=== PATIENT | female | born 1945 | race Caucasian/White ===

== ENCOUNTER 2018-05-04 10:29 | Outpatient (CLI) | payer MEDICARE, BC ==
--- NOTE | 2018-05-04 13:13 | ULT ---
THYROID ULTRASOUND: History: Nodules within the thyroid seen on outside ultrasound. Technique: Multiplanar grayscale and color doppler images were obtained in a thyroid ultrasound. FINDINGS: There are multiple cysts scattered throughout the thyroid. There are areas of nodularity measuring up to 9 mm in size in the left lobe. There is a predominately cystic lesion involving the right lobe me asuring 1.6 cm in greatest dimension. These lesions are all wider than tall and well circumscribed wi thout specific calcifications. Thyroid lobes each measure 5.4 cm in length. IMPRESSION: Multinodular, multicystic thyroid. The thyroid nodules are all TIRADS category II lesions and further follow up is not necessary per recent recommendations. POS: SIENNA
== END 2018-05-04 10:30 | disposition home or self-care (01) ==
LOC: BICULT 10:29
PROVIDERS: ATTEND Otolaryngology Plastic Surgery within the Head & Neck
DX: E04.2 Nontoxic multinodular goiter (principal)
CPT/HCPCS: 76536

== ENCOUNTER 2019-01-21 11:52 | Outpatient (CLI) | payer MEDICARE, BC ==
--- NOTE | 2019-01-21 12:11 | RAD ---
XR Knee Lt 4 View STANDARD HISTORY: Fall, posterior left knee pain FINDINGS: No fracture or dislocation is identified. Patellar osteophytes are present.
== END 2019-01-21 11:53 | disposition home or self-care (01) ==
LOC: SCSRAD 11:52
PROVIDERS: ATTEND Nurse Practitioner Family
DX: M25.562 Pain in left knee (principal); M25.762 Osteophyte, left knee

== ENCOUNTER 2019-08-21 09:13 | Emergency (ER) | payer MEDICARE, BC ==
--- NOTE | 2019-08-21 10:13 | CT ---
Head CT without contrast 08/21/2019: COMPARISON: None HISTORY: Intermittent tingling with left-sided headache TECHNIQUE: Axial CT imaging at 5 mm intervals from vertex through skull base without contrast FINDINGS: Mild mucosal thickening of right sphenoid sinus. Imaged paranasal sinuses and mastoid air c ells well-aerated otherwise. No acute osseous abnormality. No intracranial hemorrhage, midline shift, or mass effect. IMPRESSION: No intracranial hemorrhage.
[2019-08-21 10:25] LABS: #Lymphocytes 0.5 thou/uL (1.20-3.40); #Monocytes 0.5 thou/uL (0.11-0.59); #Neutrophils 4.8 thou/uL (1.40-6.50); %Basophils 0.7 % (0.0-1.0); %Eosinophils 0.6 % (0.0-10.0); %Lymphocytes 9.1 % (21.0-51.0); %Monocytes 7.8 % (0.0-10.0); %Neutrophils 81.8 % (42.0-75.0); Hemoglobin 12.9 g/dL (12.0-16.0); Mean Corpuscular HGB CONC 34.5 g/dL (32.0-36.0); Mean Corpuscular Hemoglobin 31.4 pg (27.0-31.0); Mean Platelet Volume 5.8 fL (7.4-10.4); Platelet Count 217 thou/uL (130-400); RBC Distribution Width 11.5 % (11.5-14.5); White Blood Cell (WBC) Count 5.9 thou/uL (4.8-10.8)
[2019-08-21 10:32] LABS: PTT 34.8 SEC (22.9-36.1); Prothrombin Time 12.7 SEC (12.0-14.7)
[2019-08-21 10:49] LABS: ALT (SGPT) 16 U/L (8-55); AST (SGOT) 20 U/L (5-34); Albumin 3.7 g/dL (3.4-4.8); Alkaline Phosphatase 74 U/L (40-110); Anion Gap 13 mmol/L (10-20); BUN (Urea Nitrogen) 29 mg/dL (9.8-20.1); Bilirubin, Total 1.1 mg/dL (0.2-1.2); Calc. Creatinine Clearance 0 mL/min (70-130); Calcium 9.5 mg/dL (7.8-10.44); Carbon Dioxide 28 mmol/L (23-31); Chloride 97 mmol/L (98-107); Estimated GFR-MDRD 42; Globulin 2.8 g/dL (2.4-3.5); Glucose 232 mg/dL (83-110); Potassium 4.2 mmol/L (3.5-5.1); Protein, Total 6.5 g/dL (6.0-8.3); Sodium 134 mmol/L (136-145)
== END 2019-08-21 13:02 | disposition home or self-care (01) ==
LOC: ERS 09:13
DX: E11.42 Type 2 diabetes mellitus with diabetic polyneuropathy (principal); E78.00 Pure hypercholesterolemia, unspecified; I10 Essential (primary) hypertension; E78.5 Hyperlipidemia, unspecified; Z79.82 Long term (current) use of aspirin; Z79.899 Other long term (current) drug therapy; Z79.84 Long term (current) use of oral hypoglycemic drugs
CPT/HCPCS: 36415; 70450; 80053; 85025; 85610; 85730; 93005

== ENCOUNTER 2019-09-01 06:59 | Outpatient (CLI) | payer MEDICARE, BC ==
--- NOTE | 2019-09-01 10:15 | ULT ---
Exam: THYROID ULTRASOUND: HISTORY: Thyroid nodules. COMPARISON: 05/04/2018. FINDINGS: Thyroid isthmus measures 0.19 cm. Right thyroid lobe measures 5.4 x 2.3 x 1.9 cm. Left thyroid lobe measures 5.2 x 1.9 x 2.1 cm. Thyroid nodules: Right thyroid lobe: There are multiple mixed solid and cystic nodules throughout the right thyroid lo be. Largest nodule measures 1.8 x 1.0 x 1.0 cm and is located in the mid to upper pole. Left thyroid lobe: Multiple solid as well as mixed solid and cystic nodules in the left thyroid lobe. Largest nodule in the left thyroid lobe has ill-defined borders and appears to be mixed solid and cystic. Nodule measures 1.3 x 0.7 x 0.8 cm. When compared to the previous examination, the overall degree of nodularity has not changed. IMPRESSION: Multiple nodules throughout the left and right thyroid lobe, essentially unchanged. TI-RADS level TR4, moderately suspicious. Follow-up imaging in one year is recommended. Transcribed Date/Time: 09/01/2019 10:28 AM
== END 2019-09-01 07:00 | disposition home or self-care (01) ==
LOC: BICULT 06:59
PROVIDERS: ATTEND Otolaryngology Plastic Surgery within the Head & Neck
DX: E04.2 Nontoxic multinodular goiter (principal)
CPT/HCPCS: 76536

== ENCOUNTER 2020-04-07 19:55 | Emergency (ER) | payer MEDICARE, BC, OTHER ==
[2020-04-07 20:34] LABS: #Lymphocytes 0.7 thou/uL (1.20-3.40); #Monocytes 0.2 thou/uL (0.11-0.59); #Neutrophils 4.8 thou/uL (1.40-6.50); %Basophils 0.8 % (0.0-1.0); %Eosinophils 0.8 % (0.0-10.0); %Lymphocytes 12.1 % (21.0-51.0); %Monocytes 3.9 % (0.0-10.0); %Neutrophils 82.4 % (42.0-75.0); Hemoglobin 13.3 g/dL (12.0-16.0); Mean Corpuscular Volume 91.2 fL (78.0-98.0); Mean Platelet Volume 5.8 fL (7.4-10.4); Platelet Count 246 thou/uL (130-400); RBC Distribution Width 11.9 % (11.5-14.5); Red Blood Cell (RBC) Count 4.27 mill/uL (4.20-5.40); White Blood Cell (WBC) Count 5.8 thou/uL (4.8-10.8)
--- NOTE | 2020-04-07 20:47 | RAD ---
PORTABLE CHEST: 04/07/20 HISTORY: Malaise. Chills and fever. FINDINGS: The lung parker are clear. No infiltrate identified. Heart and mediastinum appear normal. Postop ster notomy changes are noted. The vascular markings are normal. Mild stranding in the peripheral left esequiel g appears chronic. IMPRESSION: No evidence of infiltrate. POS: AGW
[2020-04-07 21:01] LABS: ALT (SGPT) 28 U/L (8-55); AST (SGOT) 34 U/L (5-34); Albumin 4.1 g/dL (3.4-4.8); Alkaline Phosphatase 83 U/L (40-110); Anion Gap 17 mmol/L (10-20); BUN (Urea Nitrogen) 36 mg/dL (9.8-20.1); Bilirubin, Total 0.8 mg/dL (0.2-1.2); Calc. Creatinine Clearance 0 mL/min (70-130); Calcium 10.1 mg/dL (7.8-10.44); Carbon Dioxide 22 mmol/L (23-31); Chloride 95 mmol/L (98-107); Estimated GFR-MDRD 46; Globulin 3.2 g/dL (2.4-3.5); Glucose 109 mg/dL (83-110); Lipase 34 U/L (8-78); Potassium 3.7 mmol/L (3.5-5.1); Protein, Total 7.3 g/dL (6.0-8.3); Sodium 130 mmol/L (136-145)
[2020-04-08 12:10] LABS: SARS-CoV-2 MS2 Positive; SARS-CoV-2 N Gene Negative; SARS-CoV-2 S Gene Negative; SARS-CoV-2 by NAA Not Detected (NotDetected); SARS-CoV-2 orf1ab Negative
== END 2020-04-07 22:34 | disposition home or self-care (01) ==
LOC: ERS 19:55
DX: R68.83 Chills (without fever) (principal); R11.2 Nausea with vomiting, unspecified; Z20.828 Contact with and (suspected) exposure to other viral communicable diseases; E11.9 Type 2 diabetes mellitus without complications; E78.5 Hyperlipidemia, unspecified; E78.00 Pure hypercholesterolemia, unspecified; I10 Essential (primary) hypertension; Z79.84 Long term (current) use of oral hypoglycemic drugs; Z79.899 Other long term (current) drug therapy
CPT/HCPCS: 71045; 80053; 83605; 83690; 84484; 85025; 87040; 93005; U0003; 36415; 87635

== ENCOUNTER 2020-09-05 06:57 | Outpatient (CLI) | payer MEDICARE, BC ==
--- NOTE | 2020-09-05 08:19 | ULT ---
Ultrasound of thethyroid: 09/05/2020 COMPARISON:09/01/2019 and 05/04/2018 HISTORY:Evaluate thyroid nodules TECHNIQUE: Multiplanar grayscale sonographic imaging of thethyroid gland provided FINDINGS:The thyroid isthmus measures 2 mm in AP dimension. The right lobe measures 2.3 x 2.0 x 5.7 cm. The left lobe measures 1.8 x 2.2 x 5.3 cm. Multiple thyroid nodules are noted within the right and left lobe of the thyroid gland. There is a so lid and cystic hypoechoic nodule within the mid portion of the right lobe measuring approximately 1.1 x 1.0 x 1.7 cm, not significantly changed when compared to the prior examination at which time it measured 1.8 x 1.1 x 1.3 cm. Additional tiny hypoechoic nodules are noted within the right lobe measuring up to 4 mm. Within the midpole of the left lobe there is a heterogeneously hypoechoic nodul e measuring up to approximately 1.1 cm, not significantly changed. Numerous additional nodules are noted within the left lobe, all of which are mildly heterogeneous and hypoechoic measuring up to 1 cm in the upper pole region and 1.1 cm in the lower pole region. No significant interval change is appreciated when compared to the 2001 exam. In addition, there has been no significant interval change when compared to the 05/04/2018 exam. IMPRESSION: Multiple stable thyroid nodules, unchanged since 2018.
== END 2020-09-05 06:58 | disposition home or self-care (01) ==
LOC: BICULT 06:57
PROVIDERS: ATTEND Otolaryngology Plastic Surgery within the Head & Neck
DX: E04.2 Nontoxic multinodular goiter (principal)
CPT/HCPCS: 76536

== ENCOUNTER 2021-05-08 10:32 | Outpatient (CLI) | payer MEDICARE, BC | END 2021-05-08 10:33 | disposition home or self-care (01) | LOC: TBSIIMAG 10:32 | PROVIDERS: ATTEND Family Medicine | DX: R41.3 Other amnesia (principal); G93.89 Other specified disorders of brain; J34.89 Other specified disorders of nose and nasal sinuses | CPT/HCPCS: 70551 ==

== ENCOUNTER 2021-05-28 07:41 | Inpatient (IN) | payer MEDICARE, BC ==
[2021-05-28 08:48] LABS: #Eosinphils 0.1 thou/uL (0.0-0.7); #Monocytes 0.3 thou/uL (0.11-0.59); #Neutrophils 2.8 thou/uL (1.40-6.50); %Basophils 0.3 % (0.0-1.0); %Eosinophils 2.8 % (0.0-10.0); %Lymphocytes 24.1 % (21.0-51.0); %Monocytes 7.5 % (0.0-10.0); %Neutrophils 65.3 % (42.0-75.0); Hemoglobin 10.3 g/dL (12.0-16.0); Mean Corpuscular HGB CONC 32.6 g/dL (32.0-36.0); Mean Corpuscular Hemoglobin 30.8 pg (27.0-31.0); Mean Corpuscular Volume 94.4 fL (78.0-98.0); Mean Platelet Volume 5.6 fL (7.4-10.4); Platelet Count 185 thou/uL (130-400); RBC Distribution Width 11.2 % (11.5-14.5); Red Blood Cell (RBC) Count 3.35 mill/uL (4.20-5.40); White Blood Cell (WBC) Count 4.2 thou/uL (4.8-10.8)
[2021-05-28 09:06] LABS: ALT (SGPT) 37 U/L (8-55); AST (SGOT) 38 U/L (5-34); Albumin 3.2 g/dL (3.4-4.8); Alkaline Phosphatase 51 U/L (40-110); Anion Gap 9 mmol/L (10-20); BUN (Urea Nitrogen) 31 mg/dL (9.8-20.1); Bilirubin, Total 0.7 mg/dL (0.2-1.2); Calc. Creatinine Clearance 0 mL/min (70-130); Calcium 8.9 mg/dL (7.8-10.44); Carbon Dioxide 26 mmol/L (23-31); Chloride 106 mmol/L (98-107); Globulin 2.7 g/dL (2.4-3.5); Glucose 218 mg/dL (83-110); Potassium 3.9 mmol/L (3.5-5.1); Protein, Total 5.9 g/dL (5.8-8.1); Sodium 137 mmol/L (136-145)
[2021-05-28] MEDS ORDERED: Lidocaine 1% w/Epinephrine 1:100K 20 ML VIAL ONE (10:42)
[2021-05-28] MEDS ORDERED: Acetaminophen 325 MG TAB PO PRN (12:09)
[2021-05-28] MEDS ORDERED: Ondansetron ODT 4 MG TAB PO PRN (12:09)
[2021-05-28] MEDS ORDERED: Dextrose 5% in Water 1,000 ML IV PRN (12:14)
[2021-05-28] MEDS ORDERED: Dextrose 50% Abboject 50 ML SYRINGE SLOW IVP PRN (12:14)
[2021-05-28] MEDS ORDERED: HumaLOG 300 UNITS/3 ML VIAL SC PRN ×2 (12:14)
[2021-05-28 12:22] LABS: Troponin I 0.021 ng/mL (< 0.028)
[2021-05-28 12:49] LABS: Magnesium 1.8 mg/dL (1.6-2.6)
[2021-05-28 15:21] LABS: Troponin I 0.015 ng/mL (< 0.028)
[2021-05-28 15:44] LABS: Bacteria/HPF 2+ HPF (None Seen); Bilirubin Negative (Negative); Blood, Urine Negative (Negative); Clarity Turbid (Clear); Glucose, Urine (Dipstick) Normal (Negative); Ketone, Urine Negative (Negative); Leukocyte 75 Leu/uL (Negative); Nitrite Negative (Negative); Protein, Urine (Dipstick) 100 mg/dL (Neg-Trace); RBC/HPF 0-3 HPF (0-3); Squamous Epithelial None Seen HPF (0-3); Urobilinogen Normal mg/dL (Less than 2); WBC/HPF 21-50 HPF (0-3)
[2021-05-28] MEDS: hydrALAZINE 25 MG TAB PO SCH ×2 (17:04→20:03)
[2021-05-28] MEDS: cefTRIAXone\\ROCEPHIN 1 GM in Sodium Chloride 0.9% 100 ML IVPB SCH (17:05)
[2021-05-28] MEDS: Amlodipine 5 MG TAB PO SCH (20:03)
[2021-05-28] MEDS: Isosorbide Dinitrate 20 MG TAB PO SCH (20:04)
[2021-05-28] MEDS: Metoprolol Tartrate 25 MG TAB PO SCH (20:04)
[2021-05-28] MEDS ORDERED: Famotidine 20 MG TAB PO SCH (21:00)
[2021-05-29 05:48] LABS: #Eosinphils 0.2 thou/uL (0.0-0.7); #Lymphocytes 1.4 thou/uL (1.20-3.40); #Monocytes 0.5 thou/uL (0.11-0.59); %Basophils 0.9 % (0.0-1.0); %Eosinophils 3.3 % (0.0-10.0); %Lymphocytes 26.7 % (21.0-51.0); %Monocytes 9.8 % (0.0-10.0); %Neutrophils 59.4 % (42.0-75.0); Mean Corpuscular HGB CONC 33.6 g/dL (32.0-36.0); Mean Corpuscular Volume 95.2 fL (78.0-98.0); Mean Platelet Volume 5.8 fL (7.4-10.4); Platelet Count 191 thou/uL (130-400); RBC Distribution Width 11.2 % (11.5-14.5); Red Blood Cell (RBC) Count 3.12 mill/uL (4.20-5.40); White Blood Cell (WBC) Count 5.1 thou/uL (4.8-10.8)
[2021-05-29 06:07] LABS: Anion Gap 9 mmol/L (10-20); BUN (Urea Nitrogen) 28 mg/dL (9.8-20.1); Calc. Creatinine Clearance 27 mL/min (70-130); Calcium 8.9 mg/dL (7.8-10.44); Carbon Dioxide 26 mmol/L (23-31); Chloride 106 mmol/L (98-107); Glucose 119 mg/dL (83-110); Sodium 137 mmol/L (136-145)
[2021-05-29] MEDS ORDERED: Chlorthalidone 25 MG TAB PO SCH (09:00)
[2021-05-29] MEDS ORDERED: AZILSARTAN MED PO SCH (09:00)
[2021-05-29] MEDS ORDERED: [UNRECOGNIZED DRUG - OTHER] PO SCH (09:00)
[2021-05-29] MEDS ORDERED: Rosuvastatin 20 MG TAB PO SCH (09:00)
[2021-05-29] MEDS ORDERED: CHLORTHALIDONE PO SCH (09:00)
[2021-05-29] MEDS ORDERED: TABLE PO SCH (09:00)
[2021-05-29] MEDS: Multivit, Therapeutic 1 TAB PO SCH (09:48)
[2021-05-29] MEDS: Aspirin 325 MG TAB PO SCH (09:49)
[2021-05-29] MEDS: Calcium Carbonate 600 MG + Vit D TAB PO SCH (09:49)
[2021-05-29] MEDS: Isosorbide Dinitrate 20 MG TAB PO SCH ×2 (10:36→19:49)
[2021-05-29] MEDS: Amlodipine 5 MG TAB PO SCH ×2 (10:36→19:47)
[2021-05-29] MEDS: hydrALAZINE 25 MG TAB PO SCH ×4 (10:37→19:49)
[2021-05-29] MEDS: Metoprolol Tartrate 25 MG TAB PO SCH ×2 (10:37→19:50)
[2021-05-29] MEDS: Losartan 25 MG TAB PO SCH (10:37)
[2021-05-29 12:02] LABS: SARS-CoV-2 PCR by NAA Not Detected (NotDetected)
[2021-05-29 14:17] VITALS: BMI 22.3
[2021-05-29] MEDS ORDERED: Magnesium 2 GM/50 ML 2 GM in Premix Bag 1 BAG IVPB SCH (14:45)
[2021-05-29] MEDS ORDERED: metFORMIN 500 MG TAB PO SCH (17:00)
[2021-05-29] MEDS: cefTRIAXone\\ROCEPHIN 1 GM in Sodium Chloride 0.9% 100 ML IVPB SCH (17:26)
[2021-05-29] MEDS: Rosuvastatin 10 MG TAB PO SCH (19:50)
[2021-05-29] MEDS: Senokot S 8.6-50 MG TAB PO SCH (19:50)
[2021-05-29] MEDS ORDERED: Famotidine 20 MG TAB PO SCH (21:00)
[2021-05-30 05:45] LABS: Anion Gap 10 mmol/L (10-20); BUN (Urea Nitrogen) 31 mg/dL (9.8-20.1); Calc. Creatinine Clearance 24 mL/min (70-130); Calcium 9.1 mg/dL (7.8-10.44); Carbon Dioxide 27 mmol/L (23-31); Chloride 103 mmol/L (98-107); Glucose 157 mg/dL (83-110); Potassium 3.9 mmol/L (3.5-5.1); Sodium 136 mmol/L (136-145)
[2021-05-30] MEDS: Aspirin 325 MG TAB PO SCH (10:22)
[2021-05-30] MEDS: Multivit, Therapeutic 1 TAB PO SCH (10:22)
[2021-05-30] MEDS: Metoprolol Tartrate 25 MG TAB PO SCH (10:22)
[2021-05-30] MEDS: Amlodipine 5 MG TAB PO SCH ×2 (10:22→18:13)
[2021-05-30] MEDS: Senokot S 8.6-50 MG TAB PO SCH ×2 (10:22→18:14)
[2021-05-30] MEDS: Isosorbide Dinitrate 20 MG TAB PO SCH ×3 (10:22→18:14)
[2021-05-30] MEDS: Losartan 25 MG TAB PO SCH (10:23)
[2021-05-30] MEDS: Calcium Carbonate 600 MG + Vit D TAB PO SCH (10:23)
[2021-05-30] MEDS: hydrALAZINE 25 MG TAB PO SCH ×2 (10:24→14:12)
[2021-05-30] MEDS: Alogliptin 6.25 MG TAB PO SCH (12:34)
[2021-05-30] MEDS: Rosuvastatin 10 MG TAB PO SCH (18:14)
[2021-05-30] MEDS ORDERED: cloNIDine 0.1 MG TAB PO PRN (19:03)
[2021-05-30] MEDS: cefTRIAXone\\ROCEPHIN 1 GM in Sodium Chloride 0.9% 100 ML IVPB SCH (19:44)
[2021-05-30] MEDS ORDERED: Metoprolol Tartrate 25 MG TAB PO SCH (21:00)
[2021-05-31] MEDS ORDERED: Metoprolol Tartrate 25 MG TAB PO SCH (09:00)
[2021-05-31] MEDS: Calcium Carbonate 600 MG + Vit D TAB PO SCH (10:03)
[2021-05-31] MEDS: Aspirin 325 MG TAB PO SCH (10:03)
[2021-05-31] MEDS: Multivit, Therapeutic 1 TAB PO SCH (10:03)
[2021-05-31] MEDS: Senokot S 8.6-50 MG TAB PO SCH (10:04)
[2021-05-31] MEDS: Alogliptin 6.25 MG TAB PO SCH (10:30)
[2021-05-31] MEDS: Amlodipine 5 MG TAB PO SCH (10:30)
[2021-05-31] MEDS: Losartan 25 MG TAB PO SCH (10:31)
[2021-05-31] MEDS: Isosorbide Dinitrate 20 MG TAB PO SCH (10:32)
[2021-05-31 12:11] VITALS: TEMP 97.4
[2021-05-31 15:18] VITALS: BP 168/93
== END 2021-05-31 16:53 | disposition home or self-care (01) | DRG 312 ==
LOC: ERS 07:41 → 2SW 11:11 → OBSVTOIN 05-29 14:24
PROVIDERS: ADMIT Internal Medicine; ATTEND Internal Medicine
DX: I95.1 Orthostatic hypotension (principal); N39.0 Urinary tract infection, site not specified; N18.4 Chronic kidney disease, stage 4 (severe); Z20.822 Contact with and (suspected) exposure to COVID-19; I25.10 Atherosclerotic heart disease of native coronary artery without angina pectoris; I12.9 Hypertensive chronic kidney disease with stage 1 through stage 4 chronic kidney disease, or unspecified chronic kidney disease; E11.22 Type 2 diabetes mellitus with diabetic chronic kidney disease; S00.03XA Contusion of scalp, initial encounter; J32.0 Chronic maxillary sinusitis; I08.1 Rheumatic disorders of both mitral and tricuspid valves; S09.90XA Unspecified injury of head, initial encounter; E83.42 Hypomagnesemia; E78.5 Hyperlipidemia, unspecified; W18.30XA Fall on same level, unspecified, initial encounter; D63.1 Anemia in chronic kidney disease; Z96.643 Presence of artificial hip joint, bilateral; E78.00 Pure hypercholesterolemia, unspecified; Z95.1 Presence of aortocoronary bypass graft; Y92.002 Bathroom of unspecified non-institutional (private) residence as the place of occurrence of the external cause; Z88.8 Allergy status to other drugs, medicaments and biological substances; Z79.82 Long term (current) use of aspirin; Z79.84 Long term (current) use of oral hypoglycemic drugs; Z79.899 Other long term (current) drug therapy; Z90.710 Acquired absence of both cervix and uterus; Z90.49 Acquired absence of other specified parts of digestive tract; Z85.3 Personal history of malignant neoplasm of breast; Z85.42 Personal history of malignant neoplasm of other parts of uterus; Z90.12 Acquired absence of left breast and nipple
CPT/HCPCS: 36415; 36416; 70450; 71045; 72125; 80048; 80053; 81001; 83735; 84484; 85025; 87086; 93005; 93306; J0696; J3475; J3490; U0003; U0005

== ENCOUNTER 2021-06-27 12:31 | Outpatient (CLI) | payer MEDICARE, BC | END 2021-06-27 12:32 | disposition home or self-care (01) | LOC: BICULT 12:31 | PROVIDERS: ATTEND Internal Medicine Nephrology | DX: I12.9 Hypertensive chronic kidney disease with stage 1 through stage 4 chronic kidney disease, or unspecified chronic kidney disease (principal); N18.4 Chronic kidney disease, stage 4 (severe) | CPT/HCPCS: 76770; 93975 ==

== ENCOUNTER 2021-12-05 12:59 | Outpatient (CLI) | payer MEDICARE, BC | END 2021-12-05 13:00 | disposition home or self-care (01) | LOC: DTY/OP 12:59 | PROVIDERS: ATTEND Surgery | DX: E11.22 Type 2 diabetes mellitus with diabetic chronic kidney disease (principal); N18.9 Chronic kidney disease, unspecified | CPT/HCPCS: 97802 ==

== ENCOUNTER 2022-10-25 06:49 | Outpatient (CLI) | payer MEDICARE, BC | END 2022-10-25 06:50 | disposition home or self-care (01) | LOC: BICULT 06:49 | PROVIDERS: ATTEND Otolaryngology Plastic Surgery within the Head & Neck | DX: E04.1 Nontoxic single thyroid nodule (principal) | CPT/HCPCS: 76536 ==